=== PATIENT | female | born 1965 | race Asian ===

== ENCOUNTER → 2020-07-27 16:34 | Outpatient (CLI) | payer OTHER, SELFPAY ==
--- NOTE | 2020-07-27 | DI.MG.S_ITS ---
BILATERAL DIGITAL SCREENING MAMMOGRAM 3D/2D WITH CAD: 07/27/2020 CLINICAL: Routine screening. Comparison is made to exams dated: 12/10/2014 mammogram - [facility], 07/17/2013 mammogram, and 12/15/2010 mammogram - [facility]. There are scattered fibroglandular elements in both breasts. Current study was also evaluated with a Computer Aided Detection (CAD) system. No significant masses, calcifications, or other findings are seen in either breast. There has been no significant interval change. IMPRESSION: NEGATIVE There is no mammographic evidence of malignancy. A 1 year screening mammogram is recommended. This exam was interpreted at Station ID: [id number]. NOTE: For mammograms, a report in lay terms will be sent to the patient. Approximately 15% of breast malignancies will not be visualized mammographically. In the management of a palpable breast mass, a negative mammogram must not discourage biopsy of a clinically suspicious lesion. Electronically Signed By: Ottoniel cope/alaina:07/28/2020 09:56:41 letter sent: Normal Exam ACR BI-RADS Category 1: Negative 3341F
== END ==
PROVIDERS: PCP Family Medicine; Referring Provider Family Medicine; Visit Provider Family Medicine
DX: Z12.31 Encounter for screening mammogram for malignant neoplasm of breast (principal)
CPT/HCPCS: 77063; 77067

== ENCOUNTER → 2024-01-08 08:48 | Outpatient (CLI) | payer OTHER, SELFPAY ==
--- NOTE | 2024-01-08 08:50 | DI.MG.S_ITS ---
BILATERAL DIGITAL DIAGNOSTIC MAMMOGRAM 3D/2D: 01/08/2024 CLINICAL: Follow up left breast, due for bilateral routine. Comparison is made to exams dated: 06/13/2022 mammogram, 06/06/2022 mammogram - [facility], 07/27/2020 mammogram - [facility], and 06/13/2022 ultrasound - [facility]. There are scattered areas of fibroglandular density (category b / 25%-50% glandular tissue). There is a stable 0.3 cm focal asymmetry in the left breast at 11 o'clock posterior depth. Likely present on more remote mammograms. No other significant masses, calcifications, or other findings are seen in either breast. IMPRESSION: INCOMPLETE: NEED ADDITIONAL IMAGING EVALUATION The stable focal asymmetry in the left breast resembles a lymph node and is indeterminate. A targeted ultrasound is recommended and will immediately follow. Based on the Tyrer Cuzick model (a risk assessment model) the patient's lifetime risk is 7.5% and her 10 year risk is 2.9%. According to the ACR, ACS, and NCCN guidelines, an annual breast MRI exam along with mammogram is recommended if the patient's lifetime risk is 20% or greater. This exam was interpreted at Station ID: [id number]. NOTE: For mammograms, a report in lay terms will be sent to the patient. Approximately 15% of breast malignancies will not be visualized mammographically. In the management of a palpable breast mass, a negative mammogram must not discourage biopsy of a clinically suspicious lesion. Electronically Signed By: Ottoniel Huerta M.D. slc/:01/08/2024 09:58:20 ACR BI-RADS Category 0: Incomplete: Need Additional Imaging Evaluation
--- NOTE | 2024-01-08 08:51 | DI.US.S_ITS ---
LIMITED ULTRASOUND OF LEFT BREAST: 01/08/2024 CLINICAL: Late 6 month follow-up of lipoma. Comparison is made to exams dated: 01/08/2024 mammogram - [facility], 06/13/2022 mammogram, 06/13/2022 ultrasound, 06/06/2022 mammogram - [facility], and 07/27/2020 mammogram - [facility]. Real-time ultrasound of the left breast 11 o'clock region was performed. Hernandez scale images of the real-time examination were reviewed. No abnormality seen in the left breast at 11 o'clock posterior depth. The previously seen suspected lipoma is no longer seen. IMPRESSION: PROBABLY BENIGN No ultrasound correlate for the focal asymmetry in the left breast. Finding is probably benign. A follow-up mammogram in 12 months is recommended. Exam findings were conveyed to the patient. This exam was interpreted at Station ID: [id number]. Electronically Signed By: Ottoniel Huerta M.D. slc/:01/08/2024 09:56:39 letter sent: Followup Recommended ACR BI-RADS Category 3: Probably Benign
== END ==
PROVIDERS: Referring Provider Nurse Practitioner Family; Visit Provider Nurse Practitioner Family
DX: N63.0 Unspecified lump in unspecified breast (principal); R92.2 Inconclusive mammogram
CPT/HCPCS: 76642; 77066; G0279